=== PATIENT | male | born 1985 | race Caucasian/White ===

== ENCOUNTER → 2023-12-07 | Outpatient (CLI) | payer OTHER ==
[2023-12-07 10:23] LABS: HEMATOCRIT 42.8 % (42.0-52.0); MEAN CORPUSCULAR HEMOGLOBIN 31.4 pg (27.0-33.0); MEAN CORPUSCULAR VOLUME 89.7 fl (80.0-96.0); PLATELET COUNT, AUTOMATED 240 10^3/uL (150-450); RED BLOOD COUNT 4.77 10^6/uL (4.30-6.10); WHITE BLOOD COUNT 6.4 10^3/uL (4.0-10.0)
[2023-12-07 10:44] LABS: HEMOGLOBIN A1c 5.5 % (4.0-6.0)
[2023-12-07 10:57] LABS: ALBUMIN 4.2 G/DL (3.2-5.2); ALKALINE PHOSPHATASE 50 U/L (46-116); ALT/SGPT 59 U/L (7.0-40); AST/SGOT 50 U/L (<34); BILIRUBIN,TOTAL 0.6 MG/DL (0.3-1.2); BLOOD UREA NITROGEN 19 MG/DL (9-23); CALCIUM LEVEL 8.3 MG/DL (8.5-10.1); CARBON DIOXIDE LEVEL 25 MMOL/L (20-31); CHLORIDE LEVEL 109 MMOL/L (98-107); CHOLESTEROL LEVEL 117 MG/DL (<200); CHOLESTEROL RISK RATIO 3.92 (<5); CREATININE FOR GFR 0.81 MG/DL (0.70-1.30); GLOMERULAR FILTRATION RATE > 60.0 (>60); GLUCOSE, FASTING 110 MG/DL (60-100); HDL CHOLESTEROL 29.8 MG/DL (>40); LDL CHOLESTEROL 56.6 MG/DL (<100); NON-HDL-C 87.2 MG/DL; POTASSIUM SERUM 4.7 MMOL/L (3.5-5.1); SODIUM LEVEL 135 MMOL/L (136-145); THYROID STIMULATING HORMONE 2.441 uIU/ML (0.55-4.78); TOTAL 25(OH) VITAMIN D 35.1 NG/ML (20.0-100.0); TOTAL PROTEIN 7.4 G/DL (5.7-8.2); TRIGLYCERIDES LEVEL 153 MG/DL (<150)
[2023-12-07 11:10] LABS: CREATININE, URINE 288.2 MG/DL; CREATININE,RANDOM URINE 288.2 MG/DL; MAU/CREAT RATIO 1.7 MCG/MG (0.0-30.0)
== END ==
LOC: M LAB 09:23
DX: Z00.00 Encounter for general adult medical examination without abnormal findings (principal); E55.9 Vitamin D deficiency, unspecified; E78.1 Pure hyperglyceridemia; R73.03 Prediabetes

== ENCOUNTER → 2024-05-20 | Outpatient (REF) | LOC: M PLAIMG 15:53 | PROVIDERS: ATTEND Internal Medicine | DX: R52 Pain, unspecified (principal) ==

== ENCOUNTER → 2024-09-23 | Outpatient (CLI) | payer OTHER ==
[2024-09-23 10:02] LABS: HEMATOCRIT 42.6 % (42.0-52.0); HEMOGLOBIN 14.5 g/dl (13.5-17.5); MEAN CORPUSCULAR HEMOGLOBIN 31.2 pg (27.0-33.0); MEAN CORPUSCULAR VOLUME 91.6 fl (80.0-96.0); PLATELET COUNT, AUTOMATED 228 10^3/uL (150-450); RED BLOOD COUNT 4.65 10^6/uL (4.30-6.10)
[2024-09-23 10:31] LABS: ALBUMIN 4.1 G/DL (3.2-5.2); ALKALINE PHOSPHATASE 51 U/L (40-129); ALT/SGPT 48 U/L (7.0-40); AST/SGOT 24 U/L (<34); BILIRUBIN,TOTAL 0.6 MG/DL (0.3-1.2); BLOOD UREA NITROGEN 20 MG/DL (9-23); CALCIUM LEVEL 9.5 MG/DL (8.5-10.1); CARBON DIOXIDE LEVEL 31 MMOL/L (20-31); CHLORIDE LEVEL 109 MMOL/L (98-107); CHOLESTEROL LEVEL 141 MG/DL (<200); CHOLESTEROL RISK RATIO 4.84 (<5); CREATININE FOR GFR 0.98 MG/DL (0.70-1.30); GLOMERULAR FILTRATION RATE > 60.0 (>60); GLUCOSE, FASTING 118 MG/DL (60-100); HDL CHOLESTEROL 29.1 MG/DL (>40); LDL CHOLESTEROL 78.1 MG/DL (<100); NON-HDL-C 111.9 MG/DL; POTASSIUM SERUM 4.3 MMOL/L (3.5-5.1); SODIUM LEVEL 142 MMOL/L (136-145); TRIGLYCERIDES LEVEL 169 MG/DL (<150)
[2024-09-23 10:33] LABS: THYROID STIMULATING HORMONE 2.556 uIU/ML (0.55-4.78); TOTAL 25(OH) VITAMIN D 35.4 NG/ML (20.0-100.0)
[2024-09-23 10:35] LABS: HEMOGLOBIN A1c 5.5 % (4.0-6.0)
== END ==
LOC: M LAB 09:07
PROVIDERS: ATTEND Nurse Practitioner Family
DX: Z00.00 Encounter for general adult medical examination without abnormal findings (principal)

== ENCOUNTER → 2024-10-21 | Outpatient (CLI) | payer OTHER | LOC: M RAD 15:03 | PROVIDERS: ATTEND Nurse Practitioner Family | DX: Z11.1 Encounter for screening for respiratory tuberculosis (principal); Z88.7 Allergy status to serum and vaccine ==

== ENCOUNTER → 2025-02-17 | Outpatient (CLI) | payer OTHER | LOC: M LAB 09:39 | PROVIDERS: ATTEND Allergy & Immunology | DX: L50.0 Allergic urticaria (principal); J30.89 Other allergic rhinitis ==

== ENCOUNTER 2025-02-26 23:23 | Emergency (ER) | payer OTHER ==
[~2025-02-26] VITALS: Ht 177.8 cm; Wt 122.6 kg
[2025-02-27] MEDS ORDERED: PRED20TA PO (07:03)
[2025-02-27] MEDS: predniSONE 20 MG TAB PO ONE (07:08)
[2025-02-27 07:09] VITALS: BP 129/91; TEMP 97.7; O2SAT 96
== END 2025-02-27 07:17 | disposition home or self-care (01) ==
LOC: M ED 23:23
DX: L50.9 Urticaria, unspecified (principal); Z88.0 Allergy status to penicillin; Z88.2 Allergy status to sulfonamides; Z88.8 Allergy status to other drugs, medicaments and biological substances; Z79.52 Long term (current) use of systemic steroids
CPT/HCPCS: 99283; J7512

== ENCOUNTER → 2025-07-29 | Outpatient (CLI) | payer OTHER ==
[~2025-07-29] MED LIST: PRED20TA PO
[2025-07-30 12:07] LABS: RUBEOLA IgG ANTIBODY 81.9 AU/mL (>16.49)
== END ==
LOC: M LAB 13:50
PROVIDERS: ATTEND Physician Assistant
DX: Z02.1 Encounter for pre-employment examination (principal)